=== PATIENT | male | born 1960 ===

== ENCOUNTER 2017-07-20 16:28 | Inpatient (IN) | payer SELFPAY ==
[~2017-07-20] VITALS: Ht 182.9 cm; Wt 108.8 kg
[2017-07-20 19:10] VITALS: BP 132/73; PULSE 86; RESP 17; TEMP 98.4
[2017-07-20] MEDS ORDERED: hydrOXYzine HCL 50 MG TAB PO PRN (19:45)
[2017-07-20] MEDS ORDERED: ACETAMINOPHEN 325 MG TAB PO PRN (19:45)
[2017-07-20] MEDS ORDERED: diphenhydrAMINE HCL 50 MG CAP - HS PRN PO (19:45)
[2017-07-20] MEDS ORDERED: MAGNESIUM HYDROXIDE SUSP 30 ML CUP PO PRN (19:45)
[2017-07-20] MEDS ORDERED: diphenhydrAMINE HCL 50 MG/ML VIAL - HS PRN IM (19:45)
[2017-07-20] MEDS ORDERED: ALUMINUM/MAGNESIUM/SIMETH 30 ML CUP PO PRN (19:45)
[2017-07-20] MEDS ORDERED: HYDR25TA5 PO (20:17)
[2017-07-20] MEDS ORDERED: ZOLO100T PO (20:17)
[2017-07-20] MEDS ORDERED: COUM5TAB PO (20:19)
[2017-07-20] MEDS ORDERED: PERC5TAB12 PO (20:19)
[2017-07-20] MEDS ORDERED: OXYC1TAB35 PO (20:25)
[2017-07-21 05:56] VITALS: BP 115/81; PULSE 80; RESP 16; TEMP 98.1; O2SAT 98
[2017-07-21 09:01] LABS: ANION GAP 8 MEQ/L (5-15); BICARBONATE 25.1 MEQ/L (21.0-32.0); BLOOD UREA NITROGEN 15 MG/DL (7-18); CHLORIDE 104 MEQ/L (98-107); GLOMERULAR FILTRATION RATE 74 ML/MIN (>89); SODIUM (NA) 137 MEQ/L (136-145)
[2017-07-21 09:03] LABS: HDL CHOLESTEROL 89.6 MG/DL (40.0-60.0); LDL CHOLESTEROL 109 MG/DL (0-99)
--- NOTE | 2017-07-21 11:00 | HHI.HP ---
Provisional Diagnosis Admission Date Jul 20, 2017 at 19:19 [place] I. Malingering Certification of Person's Competence To Provide Express and Informed Consent I have personally examined Carlitos Benton , a person being served at [facility] on, Jul 21, 2017 10:56. Express and informed consent means consent voluntarily given in writing, by a competent person, after sufficient explanation and disclosure of the subject matter involved to enable the person to make a knowing and willful decision without any element of force, fraud, deceit, duress, or other form of constraint or coercion. This person is 18 years of age or older, is not now known to be incompetent to consent to treatment with a guardian advocate, and does not have a health care surrogate or proxy currently making medical treatment decisions. I have found this person to be one of the following: [X] Competent to provide express and informed consent, as defined above, for voluntary admission to this facility and is competent to provide express and informed consent for treatment. He/she has the consistent capacity to make well reasoned, willful, and knowing decisions concerning his or her medical or mental health treatment. The person fully and consistently understands the purpose of the admission for examination/placement and is fully capable of personally exercising all rights [place] Incompetent to provide express and informed consent to voluntary admission, and this is incompetent to provide express and informed consent to treatment. The person must be transferred to involuntary status and a petition for a guardian advocate filed with the Circuit Court. [] Refusing to provide express and informed consent to voluntary admission but is competent to provide express and informed consent for treatment. The person must be discharged or transferred to involuntary status. Form shall be completed within 24 hours of a person's arrival at the receiving facility and filed in the clinical record of each person: 1. Admitted on a voluntary basis 2. Permitted to provide express and informed consent to his/her own treatment 3. Allowed to transfer from involuntary to voluntary status 4. Prior to permitting a person to consent to his or her own treatment after having been previously found incompetent to consent to treatment. History of Present Illness Capacity: Has Capacity HPI Transferred from outside hospital. Patient has alcohol issues and cocaine issues. This physician feels he is malingering mental illness to obtain a hospital bed. Inappropriate admission. Review of Systems Except as stated in HPI: all other systems reviewed are Neg Past Psych History Psychological trauma history None Violence risk - others (6 mos) Minimal Violence risk - self (6 mos) Moderate Substance Abuse History Drugs/Alcohol past 12 months Abuses alcohol and cocaine Past Family Social History Coded Allergies: No Known Allergies (Unverified , 07/20/17) Reported Medications Oxycodone-Acetaminophen (Oxycodone-Acetaminophen) 7.5-325 mg Tab, 1 TAB PO Q6H Y for PAIN, TAB 0 Refills 07/20/17 Warfarin (Coumadin) 5 Mg Tab, 5 MG PO DAILY for Blood Clot Prevention, #30 TAB 0 Refills 07/20/17 Hydrochlorothiazide (Hydrochlorothiazide) 25 Mg Tab, 25 MG PO DAILY, #30 TAB 0 Refills 07/20/17 Sertraline (Zoloft) 100 Mg Tab, 150 MG PO DAILY, #30 TAB 0 Refills 07/20/17 Current Medications Medications (Trade) Dose Ordered Sig/Yg Route Start Time Stop Time Status Last Admin (Atarax) 50 mg Q6H PRN PO 07/20/17 19:45 (Benadryl) 50 mg HS PRN PO 07/20/17 19:45 (Benadryl Inj) 50 mg HS PRN IM 07/20/17 19:45 (Tylenol) 650 mg Q4H PRN PO 07/20/17 19:45 (Milk Of Magnesia Liq) 30 ml DAILY PRN PO 07/20/17 19:45 (Mag-Al Plus Susp Liq) 30 ml Q6H PRN PO 07/20/17 19:45 Social History [place] acted in [facility]. Patient's Strengths (min. 2) Young and resilient. Physical Exam GENERAL: SKIN: Warm and dry. HEAD: Normocephalic. EYES: No scleral icterus. No injection or drainage. NECK: Supple, trachea midline. No JVD or lymphadenopathy. CARDIOVASCULAR: Regular rate and rhythm without murmurs, gallops, or rubs. RESPIRATORY: Breath sounds equal bilaterally. No accessory muscle use. GASTROINTESTINAL: Abdomen soft, non-tender, nondistended. MUSCULOSKELETAL: No cyanosis, or edema. BACK: Nontender without obvious deformity. No CVA tenderness. Vital Signs Vital Signs Date Time Temp Pulse Resp B/P (MAP) Pulse Ox O2 Delivery O2 Flow Rate FiO2 07/21/17 05:56 98.1 80 16 115/81 (92) 98 Lab Results Test 07/21/17 07:45 Blood Urea Nitrogen 15 MG/DL Creatinine 1.05 MG/DL Random Glucose 105 MG/DL Calcium Level 8.8 MG/DL Sodium Level 137 MEQ/L Potassium Level 4.0 MEQ/L Chloride Level 104 MEQ/L Carbon Dioxide Level 25.1 MEQ/L Anion Gap 8 MEQ/L Estimat Glomerular Filtration Rate 74 ML/MIN Triglycerides Level 67 MG/DL Cholesterol Level 212 MG/DL LDL Cholesterol 109 MG/DL HDL Cholesterol 89.6 MG/DL Cholesterol/HDL Ratio 2.36 RATIO Mental Status Examination Appearance: Appropriate Consciousness: Alert Orientation: x4 Motor Activity: Normal gait Speech: Unremarkable Language: Adequate Fund of Knowledge: Adequate Attention and Concentration: Adequate Memory: Unremarkable Mood: Appropriate Affect: Appropriate Thought Process & Associations: Intact Thought Content: Appropriate Hallucination Type: None Delusion Type: None Suicidal Ideation: Yes Suicidal Plan: No Suicidal Intention: No Homicidal Ideation: No Homicidal Plan: No Homicidal Intention: No Insight: Adequate Judgment: Adequate Assessment & Plan Problem List: (1) Cocaine abuse ICD Codes: F14.10 - Cocaine abuse, uncomplicated (2) Malingering ICD Codes: Z76.5 - Malingerer [conscious simulation] Assessment & Plan Estimated LOS: days. Patient being discharged as this was an inappropriate admission. Understood that patient may act out to harm himself because he is unhappy about being discharged. This risk is unavoidable unpredictable. Counter therapeutic to keep patient in the hospital. Sandro Nesbitt MD Jul 21, 2017 11:00
[2017-07-22 09:18] LABS: HEMOGLOBIN A1b 0.7 %; HEMOGLOBIN Ao 86.4 %; HEMOGLOBIN F 0.9 %; HEMOGLOBIN P3 3.4 %
== END 2017-07-21 13:20 | disposition home or self-care (01) | DRG 897 ==
LOC: H270 19:19
PROVIDERS: ADMIT Psychiatry & Neurology Psychiatry; ATTEND Psychiatry & Neurology Psychiatry
DX: F14.10 Cocaine abuse, uncomplicated (principal); Z76.5 Malingerer [conscious simulation]
CPT/HCPCS: 80048; 80061; 83036